=== PATIENT | female | born 1980 | race Caucasian/White ===

== ENCOUNTER 2021-04-26 00:41 | Emergency (ER) | payer SELFPAY ==
[~2021-04-26] VITALS: Ht 160 cm; Wt 66.0 kg
[2021-04-26 03:07] LABS: CLARITY URINE CLEAR (CLEAR); COLOR URINE YELLOW (YELLOW); KETONES URINE NEGATIVE (NEGATIVE); LEUKOCYTE ESTERASE URINE NEGATIVE (NEGATIVE); NITRITE URINE NEGATIVE (NEGATIVE); OCCULT BLOOD URINE 2+ (NEGATIVE); PH URINE 5.5 (4.5-8.0); PROTEIN URINE NEGATIVE (NEGATIVE); SPECIFIC GRAVITY URINE 1.004 (1.005-1.030); UROBILINOGEN URINE 0.2 E.U./dL (0.2-1.0)
[2021-04-26 03:32] VITALS: BP 130/75
== END 2021-04-26 03:46 | disposition left against medical advice (07) ==
LOC: ER 00:41
DX: R33.9 Retention of urine, unspecified (principal)
CPT/HCPCS: 51702; 81003; 81025; 99284; A4315